=== PATIENT | male | born 2000 | race African-American/Black ===

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

== ENCOUNTER 2020-03-04 14:00 | Emergency (ER) | payer MEDICAID ==
[~2020-03-04] VITALS: Ht 170.2 cm; Wt 75.0 kg
[2020-03-04 14:09] VITALS: TEMP 98.7
[2020-03-04] MEDS ORDERED: AMOXICILLIN 8751 TAB PO (14:38)
[2020-03-04 14:50] VITALS: BP 114/65; PULSE 106
== END 2020-03-04 14:50 | disposition home or self-care (01) ==
LOC: COL.ER 14:00
DX: R22.1 Localized swelling, mass and lump, neck (principal); Z23 Encounter for immunization; Z79.2 Long term (current) use of antibiotics

== ENCOUNTER 2020-11-06 23:12 | Emergency (ER) | payer SELFPAY ==
[~2020-11-06] VITALS: Ht 170.2 cm; Wt 70.5 kg
[2020-11-06 23:26] VITALS: TEMP 97.2
[2020-11-07 01:28] VITALS: BP 112/70; PULSE 68
[2020-11-07] MEDS ORDERED: CEPHALEXIN500 M1 PO (01:28)
== END 2020-11-07 01:28 | disposition home or self-care (01) ==
LOC: COL.ER 23:12
DX: L72.8 Other follicular cysts of the skin and subcutaneous tissue (principal)

== ENCOUNTER 2021-05-03 14:25 | Emergency (ER) | payer OTHER ==
[~2021-05-03] VITALS: Ht 170.2 cm; Wt 76.8 kg
[~2021-05-03 14:25] MED LIST changes: +CEPHALEXIN500 M1 PO
[2021-05-03 15:22] LABS: BASO % 0.3 % (0.0-2.0); GRAN # 5.1 K/mm3 (1.4-6.5); GRAN % 76.4 % (42.2-75.2); HEMATOCRIT 44.6 % (36.0-47.0); HEMOGLOBIN 15.8 g/dl (12.5-16.1); LYMPH # 1.1 K/mm3 (1.2-3.4); LYMPH % 17.1 % (20.0-51.0); MEAN CELL VOLUME 86 fl (80.0-95.0); MEAN CORPUSCULAR HEMOGLOBIN 31 pg (26-32); MEAN CORPUSCULAR HGB CONC 35 g/dl (33.0-37.0); MEAN PLATELET VOLUME 9.1 fl (7.4-10.4); MONO # 0.4 K/mm3 (0.1-0.6); MONO % 5.7 % (1.7-9.3); PLATELET COUNT 323 K/mm3 (130-400); RED BLOOD COUNT 5.16 M/mm3 (4.20-5.60); REDCELL DISTRIBUTION WIDTH-CV 11.4 % (11.5-14.5)
[2021-05-03 15:37] LABS: CALCIUM 9.8 mg/dL (8.4-10.2); CREATININE, serum 1.1 mg/dL (0.72-1.25); POTASSIUM 3.7 mmol/L (3.5-4.5); TOTAL PROTEIN 8.1 gm/dL (6.2-8.1)
[2021-05-03] MEDS ORDERED: ZOFRAN ODT4 MG PO (17:55)
[2021-05-03 18:08] VITALS: BP 132/71; PULSE 78; TEMP 98.4
== END 2021-05-03 18:13 | disposition home or self-care (01) ==
LOC: COL.ER 14:25
PROVIDERS: Emergency Medicine
DX: R11.2 Nausea with vomiting, unspecified (principal); R10.84 Generalized abdominal pain
CPT/HCPCS: J1790; J2405; J2765; J7030; Q9967

== ENCOUNTER 2021-05-15 09:53 | Emergency (ER) | payer OTHER ==
[~2021-05-15] VITALS: Ht 172.7 cm; Wt 77.3 kg
[~2021-05-15 09:53] MED LIST changes: +ZOFRAN ODT4 MG PO
[2021-05-15 11:40] LABS: BASO % 0.4 % (0.0-2.0); EOS % 0.1 % (0.0-4.0); GRAN # 5.8 K/mm3 (1.4-6.5); GRAN % 69.5 % (42.2-75.2); HEMATOCRIT 42.8 % (36.0-47.0); HEMOGLOBIN 14.3 g/dl (12.5-16.1); LYMPH # 1.8 K/mm3 (1.2-3.4); LYMPH % 21.5 % (20.0-51.0); MEAN CELL VOLUME 92 fl (80.0-95.0); MEAN CORPUSCULAR HEMOGLOBIN 31 pg (26-32); MEAN CORPUSCULAR HGB CONC 33 g/dl (33.0-37.0); MEAN PLATELET VOLUME 9.8 fl (7.4-10.4); MONO # 0.7 K/mm3 (0.1-0.6); MONO % 8.1 % (1.7-9.3); PLATELET COUNT 307 K/mm3 (130-400); RED BLOOD COUNT 4.64 M/mm3 (4.20-5.60); REDCELL DISTRIBUTION WIDTH-CV 11.9 % (11.5-14.5)
[2021-05-15 11:53] LABS: ALANINE AMINOTRANSFERASE 13 U/L (0-55); ALBUMIN 4.3 gm/dL (3.5-5.0); ALKALINE PHOSPHATASE 82 U/L (40-150); ANION GAP 12 mmol/L (7-16); AST,SGOT 22 U/L (5-34); BILIRUBIN,TOTAL 0.6 mg/dL (0.2-1.2); BLOOD UREA NITROGEN 16 mg/dL (9-21); CALCIUM 9.1 mg/dL (8.4-10.2); CARBON DIOXIDE 22 mmol/L (22-29); CHLORIDE 108 mmol/L (98-107); CREATININE, serum 1.06 mg/dL (0.72-1.25); GLUCOSE 115 mg/dL (70-99); POTASSIUM 4.4 mmol/L (3.5-4.5); SODIUM 142 mmol/L (136-145); TOTAL PROTEIN 7.4 gm/dL (6.2-8.1)
[2021-05-15 11:54] LABS: ALCOHOL(ethanol),MEDICAL < 10 mg/dL (0-10)
[2021-05-15 17:05] LABS: COLLECTION METHOD CLEAN CATCH
[2021-05-15 17:12] LABS: PH 7 (5-8); SQUAMOUS EPITHELIAL None Seen /hpf (0-10); URINE APPEARANCE Clear (CLEAR/HAZY); URINE BACTERIA None Seen /hpf (NONE SEEN); URINE BILIRUBIN Negative (NEGATIVE); URINE BLOOD Negative (NEGATIVE); URINE COLOR Straw (YELLOW); URINE GLUCOSE Negative (NEGATIVE); URINE KETONE Negative (NEGATIVE); URINE LEUKOCYTE ESTERASE Negative (NEGATIVE); URINE NITRATE Negative (NEGATIVE); URINE PROTEIN(semi-quant) Negative (NEGATIVE); URINE RBC 0-2 /hpf (0-2); URINE UROBILINOGEN Negative (NEGATIVE)
[2021-05-15 17:22] LABS: TRICYCLIC ANTIDEPRESS URINE POSITIVE
[2021-05-15 18:23] VITALS: BP 124/69; PULSE 87
== END 2021-05-15 18:33 | disposition home or self-care (01) ==
LOC: COL.ER 09:53
PROVIDERS: Nurse Practitioner Family; Student in an Organized Health Care Education/Training Program
DX: T43.011A Poisoning by tricyclic antidepressants, accidental (unintentional), initial encounter (principal); F17.290 Nicotine dependence, other tobacco product, uncomplicated
CPT/HCPCS: J7030

== ENCOUNTER 2022-03-06 23:14 | Emergency (ER) | payer SELFPAY ==
[~2022-03-06] VITALS: Ht 170.2 cm; Wt 81.8 kg
[2022-03-07 00:02] LABS: COLLECTION METHOD CLEAN CATCH
[2022-03-07 00:05] LABS: BASO % 0.4 % (0.0-2.0); EOS # 0.2 K/mm3 (0.0-0.7); EOS % 2.5 % (0.0-4.0); GRAN # 5.6 K/mm3 (1.4-6.5); GRAN % 60.8 % (42.2-75.2); HEMOGLOBIN 12.7 g/dl (13.5-18.0); LYMPH # 2.6 K/mm3 (1.2-3.4); MEAN CELL VOLUME 85 fl (80.0-100.0); MEAN CORPUSCULAR HEMOGLOBIN 30 pg (27-31); MEAN CORPUSCULAR HGB CONC 35 g/dl (33.0-37.0); MONO # 0.7 K/mm3 (0.1-0.6); MONO % 8.1 % (1.7-9.3); PLATELET COUNT 261 K/mm3 (130-400); RED BLOOD COUNT 4.22 M/mm3 (4.20-5.60); REDCELL DISTRIBUTION WIDTH-CV 11.4 % (11.5-14.5)
[2022-03-07 00:18] LABS: ALBUMIN 3.9 gm/dL (3.5-5.0); BILIRUBIN,TOTAL 0.4 mg/dL (0.2-1.2); CREATININE, serum 0.89 mg/dL (0.72-1.25); TOTAL PROTEIN 6.8 gm/dL (6.2-8.1)
[2022-03-07 00:23] LABS: URINE APPEARANCE Clear (CLEAR/HAZY); URINE BLOOD Negative (NEGATIVE); URINE COLOR Straw (YELLOW); URINE GLUCOSE Negative (NEGATIVE); URINE KETONE Negative (NEGATIVE); URINE NITRATE Negative (NEGATIVE); URINE PROTEIN(semi-quant) Negative (NEGATIVE); URINE UROBILINOGEN 0.2 E.U/dL (0.2-1.0)
[2022-03-07 00:28] LABS: TRICYCLIC ANTIDEPRESS URINE NEGATIVE
[2022-03-07 00:29] LABS: SQUAMOUS EPITHELIAL None Seen /hpf (0-10); URINE BACTERIA None Seen /hpf (NONE SEEN); URINE RBC None Seen /hpf (0-2)
[2022-03-07 01:17] VITALS: BP 141/82; PULSE 96; TEMP 97.6
== END 2022-03-07 01:17 | disposition home or self-care (01) ==
LOC: COL.ER 23:14
PROVIDERS: Physician Assistant
DX: R60.0 Localized edema (principal); Z28.310 Unvaccinated for COVID-19